=== PATIENT | male | born 1950 | race Caucasian/White ===

== ENCOUNTER 2019-12-29 17:01 | Emergency (ER) | payer MEDICARE, OTHER, SELFPAY ==
[2019-12-29 17:04] VITALS: BMI 27.9
--- NOTE | 2019-12-29 17:21 | W.ED.AMS ---
Documented by User: Tawana Gregorio MD 12/29/19 22:33 HPI - Altered Mental Status General: Chief Complaint: Altered Mental Status Stated Complaint: ADVANCED ALZHEIMER'S/ AMS Time Seen by Provider: 12/29/19 17:03 Source: patient and EMS Mode of arrival: EMS Limitations: altered mental status History of Present Illness: HPI narrative: 69-year-old male who has a history of dementia and advanced Alzheimer's. Family states he has been little more agitated than normal and is concerned that his meds are working. Patient's family states that he has been quite agitated at times at home and cannot stay alone and they cannot care for him. Patient currently is not agitated and able to answer most questions but does not know the time or the place which is consistent with his Alzheimer's. Denies any medical complaints at this time. complaint: altered mental status Associated symptoms: Deny depression Review of Systems Const: Denies: fever(s), chills, body aches or change in appetite Eyes: Denies: blurry vision or eye discomfort ENMT: Denies: throat pain or dental pain Card: Denies: chest pain Resp: Denies: dyspnea GI: Denies: abdominal pain, nausea, vomiting or diarrhea : Denies: dysuria Musc: Denies: neck pain or back pain Skin/Breast: Denies: rash Neuro: Reports: confusion; Denies: headache(s) Psych: Denies: depression Efrem/Lymph: Denies: easy bruising All/Imm: Denies: urticaria Physical Exam Const: COMMON NORMALS: no acute distress, healthy appearing and alert ORIENTATION/CONSCIOUSNESS: Yes oriented to person; not oriented to place and not oriented to time HENMT: COMMON NORMALS: normocephalic and atraumatic HEAD & SCALP: normocephalic and atraumatic Eye: COMMON NORMALS: Equal, round and reactive pupils present and EOMs intact bilaterally PUPIL: Yes Equal, round and reactive pupils present Neck/C-Spine: COMMON NORMALS: full ROM and supple Chest: COMMONS NORMALS: normal inspection of the chest and normal palpation of entire chest wall Resp: COMMON NORMALS: normal respiratory effort, No retractions, No use of accessory muscles and clear to auscultation bilaterally AUSCULTATION: clear to auscultation bilaterally Cardio: COMMON NORMALS: regular rate, regular rhythm and No murmurs present (Cardio) RATE: regular rate RHYTHM: regular rhythm GI: COMMON NORMALS: Normal to inspection, nondistended, normoactive bowel sounds present, Soft to palpation, non-tender and no masses PALPATION: Yes Soft to palpation Extremity: COMMON NORMALS: normal to inspection and full ROM Neuro: COMMON NORMALS: moves all extremities and no focal motor deficits SENSORIUM/ORIENTATION: Yes alert, Yes oriented to person, No oriented to place and No oriented to time Psych: COMMON NORMALS: mental status grossly normal, Normal thought process present and cooperative THOUGHT PROCESS: Normal thought process present Skin: COMMON NORMALS: no rashes or lesions noted and no wounds GENERAL SKIN EXAM: no rashes or lesions noted Course Vital Signs: Vital signs: Vital Signs Temperature 98.3 F 12/29/19 17:33 Pulse Rate 79 12/29/19 17:33 Respiratory Rate 18 12/29/19 17:33 Blood Pressure 122/93 12/29/19 17:33 Pulse Oximetry 96 12/29/19 17:33 MDM - Altered Mental Status MDM Narrative: Medical decision making narrative: Patient presents with increased agitation at home and daughter states that his meds seem not to be working for him. She states that he is not safe at home and is been wandering the streets and escaping her house and she is no longer able to take care of him and states she is scared he is getting get out and harm himself or someone else. We will seek geriatric psych placement. Patient's care turned over to Dr. Givens. Lab Data: Labs: Lab Results 12/29/19 12/29/19 12/29/19 Range/Units 17:25 17:25 17:25 WBC 7.6 (4.0-10.0) 10^3/ uL RBC 5.36 H (4.1-5.3) 10^6/u L Hgb 17.1 H (11.7-16.6) g/dL Hct 51.2 (42.0-52.0) % MCV 95.5 H (80-94) fL MCH 31.9 (28.0-34.0) pg MCHC 33.4 (30.0-36.0) g/dL RDW 13.2 (12.1-15.1) % Plt Count 222 (130-400) 10^3/c mm MPV 8.6 (7.4-10.4) fL Neut % (Auto) 65.1 % Lymph % (Auto) 22.9 % [place] % (Auto) 8.4 % Eos % (Auto) 3.0 % Baso % (Auto) 0.5 % Neut # (Auto) 4.96 (1.8-7.7) 10^3/u L Lymph # (Auto) 1.8 (0.8-4.8) 10^3/u L [place] # (Auto) 0.6 (0.2-0.9) 10^3/u L Eos # (Auto) 0.2 (0.0-0.8) 10^3/u L Baso # (Auto) 0.0 (0.0-0.1) 10^3/u L Nucleated RBC % (a uto) 0 % Nucleated RBCs # 0.0 /100WBC Sodium 139 (136-145) mmol/L Potassium 3.9 (3.5-5.1) mmol/L Chloride 104 (98-107) mmol/L Carbon Dioxide 25 (22-29) mmol/L Anion Gap 13.9 (5-19) BUN 11 (8-23) mg/dL Creatinine 0.9 (0.7-1.2) mg/dL GFR Calculation 83.9 L (90-130) mL/min Glucose 95 (65-115) mg/dL Calculated Osmolal ity 284 L (285-295) mOsm/k g Calcium 9.4 (8.5-10.5) mg/dL Total Bilirubin 0.3 (0.15-1.2) mg/dL AST 29 (0-40) U/L ALT 29 (0-41) U/L Alkaline Phosphata se 94 (40-130) IU/L Ammonia 30 (16-60) umol/L Total Protein 6.0 L (6.6-8.7) g/dL Albumin 3.9 (3.5-5.2) g/dL Globulin 2.1 (1.3-4.6) g/dL Vitamin B12 (232-1245) pg/mL TSH (0.27-4.20) uIU/ mL Urine Color (Yellow) Urine Appearance (CLEAR) Urine pH (5-7) Ur Specific Gravit y (1.005-1.030) Urine Protein (Negative) Urine Glucose (UA) (Normal) Urine Ketones (Negative) Urine Blood (Negative) Urine Nitrate (Negative) Urine Bilirubin (NEGATIVE) Urine Urobilinogen (Negative) mg/dL Ur Leukocyte Karen ase (Negative) Salicylates (3-10) mg/dL Urine Opiates Scre en (Negative) ng/mL Acetaminophen (10-30) ug/mL Ur Barbiturates Sc reen (Negative) ng/mL Ur Phencyclidine S crn (Negative) ng/mL Ur Amphetamines Sc reen (Negative) ng/mL U Benzodiazepines Scrn (Negative) ng/mL Urine Cocaine Scre en (Negative) ng/mL U Marijuana (THC) Screen (Negative) ng/mL Ethyl Alcohol (0-10) mg/dL 12/29/19 12/29/19 12/29/19 Range/Units 18:06 18:06 20:00 WBC (4.0-10.0) 10^3/ uL RBC (4.1-5.3) 10^6/u L Hgb (11.7-16.6) g/dL Hct (42.0-52.0) % MCV (80-94) fL MCH (28.0-34.0) pg MCHC (30.0-36.0) g/dL RDW (12.1-15.1) % Plt Count (130-400) 10^3/c mm MPV (7.4-10.4) fL Neut % (Auto) % Lymph % (Auto) % [place] % (Auto) % Eos % (Auto) % Baso % (Auto) % Neut # (Auto) (1.8-7.7) 10^3/u L Lymph # (Auto) (0.8-4.8) 10^3/u L [place] # (Auto) (0.2-0.9) 10^3/u L Eos # (Auto) (0.0-0.8) 10^3/u L Baso # (Auto) (0.0-0.1) 10^3/u L Nucleated RBC % (a uto) % Nucleated RBCs # /100WBC Sodium (136-145) mmol/L Potassium (3.5-5.1) mmol/L Chloride (98-107) mmol/L Carbon Dioxide (22-29) mmol/L Anion Gap (5-19) BUN (8-23) mg/dL Creatinine (0.7-1.2) mg/dL GFR Calculation (90-130) mL/min Glucose (65-115) mg/dL Calculated Osmolal ity (285-295) mOsm/k g Calcium (8.5-10.5) mg/dL Total Bilirubin (0.15-1.2) mg/dL AST (0-40) U/L ALT (0-41) U/L Alkaline Phosphata se (40-130) IU/L Ammonia (16-60) umol/L Total Protein (6.6-8.7) g/dL Albumin (3.5-5.2) g/dL Globulin (1.3-4.6) g/dL Vitamin B12 (232-1245) pg/mL TSH (0.27-4.20) uIU/ mL Urine Color Straw (Yellow) Urine Appearance Clear (CLEAR) Urine pH 6.5 (5-7) Ur Specific Gravit y 1.005 (1.005-1.030) Urine Protein Neg (Negative) Urine Glucose (UA) Norm (Normal) Urine Ketones Negative (Negative) Urine Blood Neg (Negative) Urine Nitrate Negative (Negative) Urine Bilirubin Neg (NEGATIVE) Urine Urobilinogen Norm (Negative) mg/dL Ur Leukocyte Karen ase Negative (Negative) Salicylates < 0.3 L (3-10) mg/dL Urine Opiates Scre en Negative (Negative) ng/mL Acetaminophen < 5.0 L (10-30) ug/mL Ur Barbiturates Sc reen Negative (Negative) ng/mL Ur Phencyclidine S crn Negative (Negative) ng/mL Ur Amphetamines Sc reen Negative (Negative) ng/mL U Benzodiazepines Scrn Negative (Negative) ng/mL Urine Cocaine Scre en Negative (Negative) ng/mL U Marijuana (THC) Screen Negative (Negative) ng/mL Ethyl Alcohol < 10 (0-10) mg/dL 12/29/19 Range/Units 20:00 WBC (4.0-10.0) 10^3/ uL RBC (4.1-5.3) 10^6/u L Hgb (11.7-16.6) g/dL Hct (42.0-52.0) % MCV (80-94) fL MCH (28.0-34.0) pg MCHC (30.0-36.0) g/dL RDW (12.1-15.1) % Plt Count (130-400) 10^3/c mm MPV (7.4-10.4) fL Neut % (Auto) % Lymph % (Auto) % [place] % (Auto) % Eos % (Auto) % Baso % (Auto) % Neut # (Auto) (1.8-7.7) 10^3/u L Lymph # (Auto) (0.8-4.8) 10^3/u L [place] # (Auto) (0.2-0.9) 10^3/u L Eos # (Auto) (0.0-0.8) 10^3/u L Baso # (Auto) (0.0-0.1) 10^3/u L Nucleated RBC % (a uto) % Nucleated RBCs # /100WBC Sodium (136-145) mmol/L Potassium (3.5-5.1) mmol/L Chloride (98-107) mmol/L Carbon Dioxide (22-29) mmol/L Anion Gap (5-19) BUN (8-23) mg/dL Creatinine (0.7-1.2) mg/dL GFR Calculation (90-130) mL/min Glucose (65-115) mg/dL Calculated Osmolal ity (285-295) mOsm/k g Calcium (8.5-10.5) mg/dL Total Bilirubin (0.15-1.2) mg/dL AST (0-40) U/L ALT (0-41) U/L Alkaline Phosphata se (40-130) IU/L Ammonia (16-60) umol/L Total Protein (6.6-8.7) g/dL Albumin (3.5-5.2) g/dL Globulin (1.3-4.6) g/dL Vitamin B12 1057 (232-1245) pg/mL TSH 2.00 (0.27-4.20) uIU/ mL Urine Color (Yellow) Urine Appearance (CLEAR) Urine pH (5-7) Ur Specific Gravit y (1.005-1.030) Urine Protein (Negative) Urine Glucose (UA) (Normal) Urine Ketones (Negative) Urine Blood (Negative) Urine Nitrate (Negative) Urine Bilirubin (NEGATIVE) Urine Urobilinogen (Negative) mg/dL Ur Leukocyte Karen ase (Negative) Salicylates (3-10) mg/dL Urine Opiates Scre en (Negative) ng/mL Acetaminophen (10-30) ug/mL Ur Barbiturates Sc reen (Negative) ng/mL Ur Phencyclidine S crn (Negative) ng/mL Ur Amphetamines Sc reen (Negative) ng/mL U Benzodiazepines Scrn (Negative) ng/mL Urine Cocaine Scre en (Negative) ng/mL U Marijuana (THC) Screen (Negative) ng/mL Ethyl Alcohol (0-10) mg/dL Imaging Data^: CT Head: Radiologist's impression: [address] [address] [address] Scan Report Signed Patient: Jen Vinson Unit #: [id number] : 1950 Age/Sex: 69 / M ADM Date: 12/29/19 Loc: ER Room/Bed: Attending Dr: Ordering Provider/Ordering MD: Tawana Gregorio MD Date of Service: 12/29/19 Procedure(s): CT head wo con* [id number] Accession Number(s): [id number] Report Number: [id number] PROCEDURE INFORMATION: Exam: CT Head Without Contrast Exam date and time: 12/29/2019 6:17 PM Age: 69 years old Clinical indication: Altered mental status/memory loss; Confusion or disorientation; Patient HX: Advanced alzheimers w increased confusion; Additional info: AMS TECHNIQUE: Imaging protocol: Computed tomography of the head without contrast. Axial, coronal and sagittal reformatted images were created and reviewed. Radiation optimization: All CT scans at this facility use at least one of these dose optimization techniques: automated exposure control; mA and/or kV adjustment per patient size (includes targeted exams where dose is matched to clinical indication); or iterative reconstruction. COMPARISON: CT head wo con* [id number] 12/15/2016 1:35 PM RADIATION DOSE METRICS: Total DLP (mGy-cm): 1610.09 FINDINGS: Brain: Patchy areas of hypoattenuation in the periventricular and subcortical white matter, consistent with chronic small vessel ischemic disease. No CT evidence of acute intracranial hemorrhage or acute territorial infarction. No significant mass effect or midline shift. Basal cisterns patent. Ventricles: Axial, coronal and sagittal reformatted images were created and reviewed. Bones/joints: No acute osseous abnormality. Sinuses: Mild mucosal thickening of the ethmoid air cells and paranasal sinuses. Mastoid air cells: Partial opacification and sclerosis of the left mastoid air cells. Vasculature: Calcific atherosclerotic disease in the cavernous internal carotid arteries, as well as the vertebro-basilar system. Soft tissues: Grossly unremarkable. CT/CT head wo con* [id number] IMPRESSION: 1. No CT evidence of acute intracranial pathology. 2. Additional findings, as above. EKG Data^: EKG 1: Attestation: I personally reviewed and interpreted this EKG as follows: EKG interpretation date: 12/29/19 EKG interpretation time: 17:53 Interpretation: nsr hr [address] or t wave abnormalities qrs 98 qtc 399 Discharge Plan Discharge Clinical Impression: Agitation Altered mental status Qualifiers: Altered mental status type: unspecified Qualified Code(s): R41.82 - Altered mental status, unspecified Condition: Stable Prescriptions: No Action quetiapine 25 mg tablet 25 mg PO BEDTIME RF: 0 donepezil 10 mg tablet 10 mg PO BEDTIME RF: 0 terbinafine HCl 250 mg tablet 250 mg PO DAILY RF: 0 epinephrine 0.3 mg/0.3 mL auto-injector See Rx Instructions .ROUTE .COMPLEX RF: 0 escitalopram oxalate 20 mg tablet 20 mg PO DAILY RF: 0 memantine 10 mg tablet 10 mg PO BID RF: 0 Referrals: Aquilino Hernandez MD [Primary Care Provider] - Coding Level of Care Code ED Diet Counselor for Chg Fwd Exam Comprehensive Documented by User: Brando Givens DO 12/30/19 04:13 HPI - Altered Mental Status General: Chief Complaint: Altered Mental Status Stated Complaint: ADVANCED ALZHEIMER'S/ AMS Time Seen by Provider: 12/29/19 17:03 Course Vital Signs: Vital signs: Vital Signs Temperature 98.3 F 12/29/19 17:33 Pulse Rate 79 12/29/19 17:33 Respiratory Rate 18 12/29/19 17:33 Blood Pressure 122/93 12/29/19 17:33 Pulse Oximetry 96 12/29/19 17:33 MDM - Altered Mental Status MDM Narrative: Medical decision making narrative: 69-year-old male with dementia checked out to me by Dr. Gregorio at shift change. He remains medically stable. He is resting comfortably in his room. Staff has been in contact with geriatric psychiatry facility and [facility]. They have agreed to accept in transfer for continued evaluation and management. Lab Data: Labs: Lab Results 12/29/19 12/29/19 12/29/19 Range/Units 17:25 17:25 17:25 WBC 7.6 (4.0-10.0) 10^3/ uL RBC 5.36 H (4.1-5.3) 10^6/u L Hgb 17.1 H (11.7-16.6) g/dL Hct 51.2 (42.0-52.0) % MCV 95.5 H (80-94) fL MCH 31.9 (28.0-34.0) pg MCHC 33.4 (30.0-36.0) g/dL RDW 13.2 (12.1-15.1) % Plt Count 222 (130-400) 10^3/c mm MPV 8.6 (7.4-10.4) fL Neut % (Auto) 65.1 % Lymph % (Auto) 22.9 % [place] % (Auto) 8.4 % Eos % (Auto) 3.0 % Baso % (Auto) 0.5 % Neut # (Auto) 4.96 (1.8-7.7) 10^3/u L Lymph # (Auto) 1.8 (0.8-4.8) 10^3/u L [place] # (Auto) 0.6 (0.2-0.9) 10^3/u L Eos # (Auto) 0.2 (0.0-0.8) 10^3/u L Baso # (Auto) 0.0 (0.0-0.1) 10^3/u L Nucleated RBC % (a uto) 0 % Nucleated RBCs # 0.0 /100WBC Sodium 139 (136-145) mmol/L Potassium 3.9 (3.5-5.1) mmol/L Chloride 104 (98-107) mmol/L Carbon Dioxide 25 (22-29) mmol/L Anion Gap 13.9 (5-19) BUN 11 (8-23) mg/dL Creatinine 0.9 (0.7-1.2) mg/dL GFR Calculation 83.9 L (90-130) mL/min Glucose 95 (65-115) mg/dL Calculated Osmolal ity 284 L (285-295) mOsm/k g Calcium 9.4 (8.5-10.5) mg/dL Total Bilirubin 0.3 (0.15-1.2) mg/dL AST 29 (0-40) U/L ALT 29 (0-41) U/L Alkaline Phosphata se 94 (40-130) IU/L Ammonia 30 (16-60) umol/L Total Protein 6.0 L (6.6-8.7) g/dL Albumin 3.9 (3.5-5.2) g/dL Globulin 2.1 (1.3-4.6) g/dL Vitamin B12 (232-1245) pg/mL TSH (0.27-4.20) uIU/ mL Urine Color (Yellow) Urine Appearance (CLEAR) Urine pH (5-7) Ur Specific Gravit y (1.005-1.030) Urine Protein (Negative) Urine Glucose (UA) (Normal) Urine Ketones (Negative) Urine Blood (Negative) Urine Nitrate (Negative) Urine Bilirubin (NEGATIVE) Urine Urobilinogen (Negative) mg/dL Ur Leukocyte Karen ase (Negative) Salicylates (3-10) mg/dL Urine Opiates Scre en (Negative) ng/mL Acetaminophen (10-30) ug/mL Ur Barbiturates Sc reen (Negative) ng/mL Ur Phencyclidine S crn (Negative) ng/mL Ur Amphetamines Sc reen (Negative) ng/mL U Benzodiazepines Scrn (Negative) ng/mL Urine Cocaine Scre en (Negative) ng/mL U Marijuana (THC) Screen (Negative) ng/mL Ethyl Alcohol (0-10) mg/dL 12/29/19 12/29/19 12/29/19 Range/Units 18:06 18:06 20:00 WBC (4.0-10.0) 10^3/ uL RBC (4.1-5.3) 10^6/u L Hgb (11.7-16.6) g/dL Hct (42.0-52.0) % MCV (80-94) fL MCH (28.0-34.0) pg MCHC (30.0-36.0) g/dL RDW (12.1-15.1) % Plt Count (130-400) 10^3/c mm MPV (7.4-10.4) fL Neut % (Auto) % Lymph % (Auto) % [place] % (Auto) % Eos % (Auto) % Baso % (Auto) % Neut # (Auto) (1.8-7.7) 10^3/u L Lymph # (Auto) (0.8-4.8) 10^3/u L [place] # (Auto) (0.2-0.9) 10^3/u L Eos # (Auto) (0.0-0.8) 10^3/u L Baso # (Auto) (0.0-0.1) 10^3/u L Nucleated RBC % (a uto) % Nucleated RBCs # /100WBC Sodium (136-145) mmol/L Potassium (3.5-5.1) mmol/L Chloride (98-107) mmol/L Carbon Dioxide (22-29) mmol/L Anion Gap (5-19) BUN (8-23) mg/dL Creatinine (0.7-1.2) mg/dL GFR Calculation (90-130) mL/min Glucose (65-115) mg/dL Calculated Osmolal ity (285-295) mOsm/k g Calcium (8.5-10.5) mg/dL Total Bilirubin (0.15-1.2) mg/dL AST (0-40) U/L ALT (0-41) U/L Alkaline Phosphata se (40-130) IU/L Ammonia (16-60) umol/L Total Protein (6.6-8.7) g/dL Albumin (3.5-5.2) g/dL Globulin (1.3-4.6) g/dL Vitamin B12 (232-1245) pg/mL TSH (0.27-4.20) uIU/ mL Urine Color Straw (Yellow) Urine Appearance Clear (CLEAR) Urine pH 6.5 (5-7) Ur Specific Gravit y 1.005 (1.005-1.030) Urine Protein Neg (Negative) Urine Glucose (UA) Norm (Normal) Urine Ketones Negative (Negative) Urine Blood Neg (Negative) Urine Nitrate Negative (Negative) Urine Bilirubin Neg (NEGATIVE) Urine Urobilinogen Norm (Negative) mg/dL Ur Leukocyte Karen ase Negative (Negative) Salicylates < 0.3 L (3-10) mg/dL Urine Opiates Scre en Negative (Negative) ng/mL Acetaminophen < 5.0 L (10-30) ug/mL Ur Barbiturates Sc reen Negative (Negative) ng/mL Ur Phencyclidine S crn Negative (Negative) ng/mL Ur Amphetamines Sc reen Negative (Negative) ng/mL U Benzodiazepines Scrn Negative (Negative) ng/mL Urine Cocaine Scre en Negative (Negative) ng/mL U Marijuana (THC) Screen Negative (Negative) ng/mL Ethyl Alcohol < 10 (0-10) mg/dL 12/29/19 Range/Units 20:00 WBC (4.0-10.0) 10^3/ uL RBC (4.1-5.3) 10^6/u L Hgb (11.7-16.6) g/dL Hct (42.0-52.0) % MCV (80-94) fL MCH (28.0-34.0) pg MCHC (30.0-36.0) g/dL RDW (12.1-15.1) % Plt Count (130-400) 10^3/c mm MPV (7.4-10.4) fL Neut % (Auto) % Lymph % (Auto) % [place] % (Auto) % Eos % (Auto) % Baso % (Auto) % Neut # (Auto) (1.8-7.7) 10^3/u L Lymph # (Auto) (0.8-4.8) 10^3/u L [place] # (Auto) (0.2-0.9) 10^3/u L Eos # (Auto) (0.0-0.8) 10^3/u L Baso # (Auto) (0.0-0.1) 10^3/u L Nucleated RBC % (a uto) % Nucleated RBCs # /100WBC Sodium (136-145) mmol/L Potassium (3.5-5.1) mmol/L Chloride (98-107) mmol/L Carbon Dioxide (22-29) mmol/L Anion Gap (5-19) BUN (8-23) mg/dL Creatinine (0.7-1.2) mg/dL GFR Calculation (90-130) mL/min Glucose (65-115) mg/dL Calculated Osmolal ity (285-295) mOsm/k g Calcium (8.5-10.5) mg/dL Total Bilirubin (0.15-1.2) mg/dL AST (0-40) U/L ALT (0-41) U/L Alkaline Phosphata se (40-130) IU/L Ammonia (16-60) umol/L Total Protein (6.6-8.7) g/dL Albumin (3.5-5.2) g/dL Globulin (1.3-4.6) g/dL Vitamin B12 1057 (232-1245) pg/mL TSH 2.00 (0.27-4.20) uIU/ mL Urine Color (Yellow) Urine Appearance (CLEAR) Urine pH (5-7) Ur Specific Gravit y (1.005-1.030) Urine Protein (Negative) Urine Glucose (UA) (Normal) Urine Ketones (Negative) Urine Blood (Negative) Urine Nitrate (Negative) Urine Bilirubin (NEGATIVE) Urine Urobilinogen (Negative) mg/dL Ur Leukocyte Karen ase (Negative) Salicylates (3-10) mg/dL Urine Opiates Scre en (Negative) ng/mL Acetaminophen (10-30) ug/mL Ur Barbiturates Sc reen (Negative) ng/mL Ur Phencyclidine S crn (Negative) ng/mL Ur Amphetamines Sc reen (Negative) ng/mL U Benzodiazepines Scrn (Negative) ng/mL Urine Cocaine Scre en (Negative) ng/mL U Marijuana (THC) Screen (Negative) ng/mL Ethyl Alcohol (0-10) mg/dL Discharge Plan Discharge Clinical Impression: Agitation Altered mental status Qualifiers: Altered mental status type: unspecified Qualified Code(s): R41.82 - Altered mental status, unspecified Condition: Stable Prescriptions: No Action quetiapine 25 mg tablet 25 mg PO BEDTIME RF: 0 donepezil 10 mg tablet 10 mg PO BEDTIME RF: 0 terbinafine HCl 250 mg tablet 250 mg PO DAILY RF: 0 epinephrine 0.3 mg/0.3 mL auto-injector See Rx Instructions .ROUTE .COMPLEX RF: 0 escitalopram oxalate 20 mg tablet 20 mg PO DAILY RF: 0 memantine 10 mg tablet 10 mg PO BID RF: 0 Referrals: Aquilino Hernandez MD [Primary Care Provider] - Coding Level of Care Code ED Diet Counselor for Chayog Fwd Exam Comprehensive
--- NOTE | 2019-12-29 17:29 | CTR_ITS ---
PROCEDURE INFORMATION: Exam: CT Head Without Contrast Exam date and time: 12/29/2019 6:17 PM Age: 69 years old Clinical indication: Altered mental status/memory loss; Confusion or disorientation; Patient HX: Advanced alzheimers w increased confusion; Additional info: AMS TECHNIQUE: Imaging protocol: Computed tomography of the head without contrast. Axial, coronal and sagittal reformatted images were created and reviewed. Radiation optimization: All CT scans at this facility use at least one of these dose optimization techniques: automated exposure control; mA and/or kV adjustment per patient size (includes targeted exams where dose is matched to clinical indication); or iterative reconstruction. COMPARISON: CT head wo con* [id number] 12/15/2016 1:35 PM RADIATION DOSE METRICS: Total DLP (mGy-cm): 1610.09 FINDINGS: Brain: Patchy areas of hypoattenuation in the periventricular and subcortical white matter, consistent with chronic small vessel ischemic disease. No CT evidence of acute intracranial hemorrhage or acute territorial infarction. No significant mass effect or midline shift. Basal cisterns patent. Ventricles: Axial, coronal and sagittal reformatted images were created and reviewed. Bones/joints: No acute osseous abnormality. Sinuses: Mild mucosal thickening of the ethmoid air cells and paranasal sinuses. Mastoid air cells: Partial opacification and sclerosis of the left mastoid air cells. Vasculature: Calcific atherosclerotic disease in the cavernous internal carotid arteries, as well as the vertebro-basilar system. Soft tissues: Grossly unremarkable. CT/CT head wo con* [id number] IMPRESSION: 1. No CT evidence of acute intracranial pathology. 2. Additional findings, as above. Radiation Dose CTDIVOL = (mGy): DLP = 1610.09 (mGy-cm)
--- NOTE | 2019-12-29 17:29 | ECG_ITS ---
[facility] Test Date: 2019-12-29 Pat Name: Jen Vinson Department: Room: Gender: Male Court Recorder: : 1950 Requested By: Tawana Gregorio Order Number: [id number] Lobito MD: Vasile Brian M.D. Measurements Intervals [place] Rate: 80 P: 41 VA: 174 QRS: 23 QRSD: 98 T: 18 QT: 363 QTc: 420 Interpretive Statements SINUS RHYTHM LOW QRS VOLTAGE IN PRECORDIAL LEADS [QRS DEFLECTION < 1.0 mV IN CHEST LEADS] Compared to ECG 12/16/2016 06:03:27 Low QRS voltage now present Sinus bradycardia no longer present Electronically Signed On 12-29-2019 19:05:10 CDT by Vasile Brian M.D. [email or web address] community [email or web address] marion [facility] [id number] f
[2019-12-29 17:33] VITALS: BP 122/93; PULSE 79; RESP 18; TEMP 36.8; O2SAT 96
[2019-12-29 17:34] LABS: Basophils % 0.5 %; Eosinophils # 0.2 10^3/uL (0.0-0.8); Hematocrit 51.2 % (42.0-52.0); Hemoglobin 17.1 g/dL (11.7-16.6); Lymphocytes # 1.8 10^3/uL (0.8-4.8); Lymphocytes % 22.9 %; Mean Corpuscular HGB Conc 33.4 g/dL (30.0-36.0); Mean Corpuscular Hemoglobin 31.9 pg (28.0-34.0); Mean Corpuscular Volume 95.5 fL (80-94); Mean Platelet Volume 8.6 fL (7.4-10.4); Monocytes # 0.6 10^3/uL (0.2-0.9); Monocytes % 8.4 %; Neutrophils # 4.96 10^3/uL (1.8-7.7); Neutrophils % 65.1 %; Nucleated Red Blood Cells % 0 %; Platelet Count 222 10^3/cmm (130-400); Red Blood Count 5.36 10^6/uL (4.1-5.3); Red Cell Distribution Width 13.2 % (12.1-15.1); White Blood Count 7.6 10^3/uL (4.0-10.0)
[2019-12-29 18:10] LABS: Add Urine Microscopic? NO
[2019-12-29 18:14] LABS: Ammonia 30 umol/L (16-60)
[2019-12-29 18:15] LABS: Alanine Aminotransferase 29 U/L (0-41); Albumin Level 3.9 g/dL (3.5-5.2); Alkaline Phosphatase 94 IU/L (40-130); Aspartate Amino Transferase 29 U/L (0-40); Carbon Dioxide 25 mmol/L (22-29); Chloride 104 mmol/L (98-107); Globulin 2.1 g/dL (1.3-4.6); Glucose 95 mg/dL (65-115); Sodium 139 mmol/L (136-145); Total Bilirubin 0.3 mg/dL (0.15-1.2)
[2019-12-29 18:17] LABS: Bilirubin Urine Neg (NEGATIVE); Blood Urine Neg (Negative); Glucose Urine UA Norm (Normal); Ketones Urine Negative (Negative); Leukocyte Esterase Urine Negative (Negative); Nitrate Urine Negative (Negative); Protein Urine Neg (Negative); Specific Gravity, Urine 1.005 (1.005-1.030); Urine Appearance Clear (CLEAR); Urine Color Straw (Yellow); Urobilinogen Urine Norm (Negative); pH Urine 6.5 (5-7)
[2019-12-29 18:41] LABS: Blood Urea Nitrogen 11 mg/dL (8-23); Calcium 9.4 mg/dL (8.5-10.5); Osmolality Calculated 284 mOsm/kg (285-295)
[2019-12-29 18:45] LABS: Anion Gap 13.9 (5-19); Potassium 3.9 mmol/L (3.5-5.1)
[2019-12-29 19:02] LABS: Glomerular Filtration Rate 83.9 mL/min (90-130)
--- NOTE | 2019-12-29 19:35 | PC.NURSE ---
Informed pt's daughter Terri @ [phone] who states she is the pt's guardian that pt is ready for discharge, no acute findings noted. 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 She was asked if she has filed out an affidavit,she stated no. Pt guardian informed that one will have to be completed and care can move forward depending on the findings. Pt guardian informed that as his guardian she can find facilities that can meet his needs if she is unable to care for himself. Pt's guardian states she will come to the ED to complete an affivadit to place ot in 96 hour hold. notifian
[2019-12-29 19:58] LABS: Amphetamines Screen Urine Negative (Negative); Barbiturates Screen Urine Negative (Negative); Benzodiazepines Screen Urine Negative (Negative); Cocaine Screen Urine Negative (Negative); Opiate Screen Urine Negative (Negative); PCP Screen Urine Negative (Negative); THC Screen Urine Negative (Negative)
--- NOTE | 2019-12-29 20:26 | PC.NURSE ---
IV insertion of 20g is documented on the wrong patient
[2019-12-29] MEDS: LORazepam 1 mg Tablet PO (21:01)
[2019-12-29 21:04] LABS: Acetaminophen < 5.0 ug/mL (10-30); Alcohol Level < 10 mg/dL (0-10); Salicylate < 0.3 mg/dL (3-10)
--- NOTE | 2019-12-30 00:18 | PC.NURSE ---
[place], [place] has bed for pt. Chart faxed attn Flo
[2019-12-30 00:20] LABS: Vitamin B12 1057 pg/mL (232-1245)
--- NOTE | 2019-12-30 01:10 | PC.NURSE ---
during pt rounding, pt requesting sandwich and drink. food and drink provided
--- NOTE | 2019-12-30 02:23 | PC.NURSE ---
S/W Kathleen @ [facility], pt may not meet the initial requirements for inpatient stay. However, after report given, Kathleen states she will have his case given further review
--- NOTE | 2019-12-30 03:49 | PC.NURSE ---
Pt assisted to bathroom
--- NOTE | 2019-12-30 04:29 | PC.NURSE ---
vm left for DPOA regarding pt admit status @ [facility]
[2019-12-30 04:52] VITALS: BP 126/76; PULSE 54; RESP 18; O2SAT 96
== END 2019-12-30 04:54 ==
PROVIDERS: Emergency Medicine; Emergency Provider Emergency Medicine; PCP Family Medicine
DX: R45.1 Restlessness and agitation (principal); R41.82 Altered mental status, unspecified; G30.9 Alzheimer's disease, unspecified; F02.80 Dementia in other diseases classified elsewhere, unspecified severity, without behavioral disturbance, psychotic disturbance, mood disturbance, and anxiety
CPT/HCPCS: 12345; 36415; 70450; 80053; 80306; 80307; 81003; 82140; 82607; 84443; 85025; 93005; 99284; 99285

== ENCOUNTER 2020-02-27 09:45 | Emergency (ER) | payer MEDICARE, OTHER, SELFPAY ==
[2020-02-27 09:48] VITALS: BP 119/77; PULSE 100; RESP 18; TEMP 36.9; O2SAT 97
--- NOTE | 2020-02-27 09:59 | XR_ITS ---
WS: [id number] CHEST XRAY TECHNIQUE: Portable chest. CLINICAL INFORMATION: syncope COMPARISON: FINDINGS: Heart: Cardiomegaly. Lungs: Mild chronic emphysematous changes. No acute pulmonary infiltrates. Bones: Normal visualized bony structures. XR/XR chest 1V portable [id number] IMPRESSION: No acute chest findings
--- NOTE | 2020-02-27 10:03 | W.ED.GENADLT ---
HPI - General Adult General: Chief complaint: Altered Mental Status Stated complaint: INCREASED CONFUSION AND TEMP Time Seen by Provider: 02/27/20 09:50 History of Present Illness: HPI narrative: 69-year-old male patient presents to the emergency department by EMS, he was sent to the emergency department due to increased confusion and fever. He has active Alzheimer's dementia, cared for by long-term care facility. HPI completed with assistance from nursing staff. Alzheimer's disease is advanced. He is currently treated with Bactrim DS for abscess to the right neck. Staff reports fever this morning and looked pale. Onset (ago): day(s) (1) Location: neck (Right lateral) Associated symptoms: Reports headache(s); Deny chest pain, dyspnea, nausea, palpitations or vomiting Review of Systems General: Reports: 10 or more systems reviewed and unremarkable except in HPI and below Const: Reports: fever(s) and chills Eyes: Denies: blurry vision or eye redness ENMT: Denies: throat pain, dental pain or disequilibrium Card: Denies: chest pain, palpitations or irregular heart rhythm Resp: Denies: dyspnea, productive cough, non-productive cough or wheezing GI: Denies: abdominal pain, nausea or vomiting : Denies: dysuria Musc: Denies: back pain Skin/Breast: Reports: erythema (Right lateral neck) and skin tenderness (Right lateral neck) Neuro: Reports: headache(s), weakness in extremities, behavioral changes (increased confusion) and other (Alzheimer's dementia, advanced) Psych: Reports: sleeping more and difficulty concentrating Efrem/Lymph: Denies: easy bruising Physical Exam Const: COMMON NORMALS: no acute distress, healthy appearing, alert and well nourished EXAM LIMITATIONS: altered mental status (Advanced Alzheimer's dementia, chronic) GENERAL APPEARANCE: comfortable and well kempt ORIENTATION/CONSCIOUSNESS: Yes awake and Yes Other orientation findings (Limited secondary to Alzheimer's dementia) HENMT: COMMON NORMALS: normocephalic, external ears normal and Normal external nose present HEAD & SCALP: normocephalic FACE & SINUS: normal facial exam NOSE: Normal external nose present EXTERNAL EAR: Yes external ears normal MOUTH: moist mucous membranes abnormal (dry -food remnant in mouth) THROAT: posterior oropharynx normal Eye: COMMON NORMALS: Equal, round and reactive pupils present GENERAL EYE: appearance normal, both eyes and all related structures EYELID: eyelids normal PUPIL: Yes Equal, round and reactive pupils present EOM: Yes EOM abnormal Neck/C-Spine: COMMON NORMALS: full ROM and no lymphadenopathy GENERAL: Yes normal visual inspection and Yes trachea midline CERVICAL SPINE: Yes cervical ROM normal Lymph: LYMPHATIC: no lymphadenopathy noted Chest: COMMONS NORMALS: normal inspection of the chest Resp: COMMON NORMALS: normal respiratory effort and clear to auscultation bilaterally AUSCULTATION: clear to auscultation bilaterally Cardio: COMMON NORMALS: regular rhythm, S1 normal heart sound present and S2 normal heart sound present RHYTHM: regular rhythm HEART SOUNDS: S1 normal heart sound present and S2 normal heart sound present GI: COMMON NORMALS: Normal to inspection, nondistended, normoactive bowel sounds present, Soft to palpation and non-tender INSPECTION: Yes normal to inspection PALPATION: Yes Soft to palpation PERCUSSION: normal to percussion : COMMON NORMALS: Yes no CVA tenderness BLADDER/KIDNEY EXAM: Yes no CVA tenderness Back/Pelvis: COMMON NORMALS: no CVA tenderness and thoracic and lumbar spine normal to inspection Extremity: COMMON NORMALS: normal to inspection and capillary refill normal Neuro: MYA COMA SCALE: GCS not evaluated (Due to advanced Alzheimer state) COMMON NORMALS: moves all extremities (Spontaneous movement) SENSORIUM/ORIENTATION: Yes alert GAIT: Yes Unable to assess gait MOTOR EXAM: Tremors during motor activity present resting tremor bialteral upper extremity and right upper extremity Psych: COMMON NORMALS: speech normal APPEARANCE: Yes well kempt ATTITUDE: Yes calm ACTIVITY/MOTOR BEHAVIOR: Yes fidgeting SPEECH: Yes normal speech and Yes minimal THOUGHT PROCESS: disorganized and confused ATTENTION/CONCENTRATION: Yes attention grossly impaired and Yes concentration grossly impaired MEMORY/COGNITION: Yes memory grossly impaired and Yes cognition grossly impaired Skin: COMMON NORMALS: no rashes or lesions noted and turgor normal GENERAL SKIN EXAM: no rashes or lesions noted and turgor normal LESIONS: lesion noted (2.5 cm x 2.5 cm scab formation, annular without induration suggesting abscess ) and other (right lateral neck, no drainage, erythema or tenderness) RASHES: no rashes TRAUMA: no lacerations or abrasions Course ED course: 69-year-old male presents to the emergency department from [facility]. Tested for COVID mid January, negative, has continued in quarantine without visitors. Per nursing staff, wound to the right neck, no surrounding much improved, currently on Bactrim, will continue. Chest x-ray negative for acute disease, urine negative for urinary tract infection, white blood count normal, lactic acid normal, patient sitting on the side of the bed drinking, interacting with staff, patient had combative episode during the emergency department during [place] catheter insertion but quickly calmed down when removed. Alzheimer's and dementia, advanced, remains confused but at baseline. He looks good, vital signs are normal, slight dehydration noted with IV fluid administration here in the ED. Vital Signs: Vital signs: Vital Signs Temperature 97.6 F 02/27/20 12:43 Pulse Rate 97 02/27/20 12:43 Respiratory Rate 16 02/27/20 12:43 Blood Pressure 110/89 02/27/20 12:43 Pulse Oximetry 96 02/27/20 12:43 MDM - General Adult Lab Data: Labs: Lab Results 02/27/20 02/27/20 02/27/20 Range/Units 10:00 10:00 10:00 WBC 5.7 (4.0-10.0) 10^3/ uL RBC 5.56 H (4.1-5.3) 10^6/u L Hgb 17.8 H (11.7-16.6) g/dL Hct 52.8 H (42.0-52.0) % MCV 95.0 H (80-94) fL MCH 32.0 (28.0-34.0) pg MCHC 33.7 (30.0-36.0) g/dL RDW 13.2 (12.1-15.1) % Plt Count 187 (130-400) 10^3/c mm MPV 8.2 (7.4-10.4) fL Neut % (Auto) 76.9 % Lymph % (Auto) 11.0 % [place] % (Auto) 11.2 % Eos % (Auto) 0.2 % Baso % (Auto) 0.5 % Neut # (Auto) 4.40 (1.8-7.7) 10^3/u L Lymph # (Auto) 0.6 L (0.8-4.8) 10^3/u L [place] # (Auto) 0.6 (0.2-0.9) 10^3/u L Eos # (Auto) 0.0 (0.0-0.8) 10^3/u L Baso # (Auto) 0.0 (0.0-0.1) 10^3/u L Nucleated RBC % (a uto) 0 % Nucleated RBCs # 0.0 /100WBC Sodium 134 L (136-145) mmol/L Potassium 4.3 (3.5-5.1) mmol/L Chloride 100 (98-107) mmol/L Carbon Dioxide 23 (22-29) mmol/L Anion Gap 15.3 (5-19) BUN 17 (8-23) mg/dL Creatinine 0.9 (0.7-1.2) mg/dL GFR Calculation 83.9 L (90-130) mL/min Glucose 134 H (65-115) mg/dL Calculated Osmolal ity 276 L (285-295) mOsm/k g Lactate 1.4 (0.5-2.2) mmol/L Calcium 9.0 (8.5-10.5) mg/dL Total Bilirubin 0.4 (0.15-1.2) mg/dL AST 33 (0-40) U/L ALT 42 H (0-41) U/L Alkaline Phosphata se 141 H (40-130) IU/L Total Protein 7.3 (6.6-8.7) g/dL Albumin 4.2 (3.5-5.2) g/dL Globulin 3.1 (1.3-4.6) g/dL Urine Color (Yellow) Urine Appearance (CLEAR) Urine pH (5-7) Ur Specific Gravit y (1.005-1.030) Urine Protein (Negative) Urine Glucose (UA) (Normal) Urine Ketones (Negative) Urine Blood (Negative) Urine Nitrate (Negative) Urine Bilirubin (NEGATIVE) Urine Urobilinogen (Negative) mg/dL Ur Leukocyte Karen ase (Negative) 02/27/20 Range/Units 11:22 WBC (4.0-10.0) 10^3/ uL RBC (4.1-5.3) 10^6/u L Hgb (11.7-16.6) g/dL Hct (42.0-52.0) % MCV (80-94) fL MCH (28.0-34.0) pg MCHC (30.0-36.0) g/dL RDW (12.1-15.1) % Plt Count (130-400) 10^3/c mm MPV (7.4-10.4) fL Neut % (Auto) % Lymph % (Auto) % [place] % (Auto) % Eos % (Auto) % Baso % (Auto) % Neut # (Auto) (1.8-7.7) 10^3/u L Lymph # (Auto) (0.8-4.8) 10^3/u L [place] # (Auto) (0.2-0.9) 10^3/u L Eos # (Auto) (0.0-0.8) 10^3/u L Baso # (Auto) (0.0-0.1) 10^3/u L Nucleated RBC % (a uto) % Nucleated RBCs # /100WBC Sodium (136-145) mmol/L Potassium (3.5-5.1) mmol/L Chloride (98-107) mmol/L Carbon Dioxide (22-29) mmol/L Anion Gap (5-19) BUN (8-23) mg/dL Creatinine (0.7-1.2) mg/dL GFR Calculation (90-130) mL/min Glucose (65-115) mg/dL Calculated Osmolal ity (285-295) mOsm/k g Lactate (0.5-2.2) mmol/L Calcium (8.5-10.5) mg/dL Total Bilirubin (0.15-1.2) mg/dL AST (0-40) U/L ALT (0-41) U/L Alkaline Phosphata se (40-130) IU/L Total Protein (6.6-8.7) g/dL Albumin (3.5-5.2) g/dL Globulin (1.3-4.6) g/dL Urine Color Yellow (Yellow) Urine Appearance Clear (CLEAR) Urine pH 6 (5-7) Ur Specific Gravit y 1.020 (1.005-1.030) Urine Protein Neg (Negative) Urine Glucose (UA) Norm (Normal) Urine Ketones Negative (Negative) Urine Blood Neg (Negative) Urine Nitrate Negative (Negative) Urine Bilirubin Neg (NEGATIVE) Urine Urobilinogen 4 H (Negative) mg/dL Ur Leukocyte Karen ase Negative (Negative) Discharge Plan Discharge Patient Disposition: Xfer [facility] Clinical Impression: Healing wound, Dehydration Alzheimer's disease Qualifiers: Alzheimer's disease onset: unspecified onset Dementia behavioral disturbance: with behavioral disturbance Qualified Code(s): G30.9 - Alzheimer's disease, unspecified Condition: Stable Discharge Orders: Discharge Order (Routine); Ordered 02/27/20 Ordered By: Lashon Diallo Referrals: Aquilino Hernandez MD [Primary Care Provider] - Discharge Diet: Usual diet Discharge Activity: Resume usual activity Patient Instructions: Dehydration (ED), Alzheimer Disease (GEN), Acute Wound Care (ED) Activity Restrictions/Additional Instructions: Continue Bactrim until all gone Follow-up with primary care in 5 days Patient has not exhibited fever here in the emergency department Patient has received 1 L of IV fluids during his stay Chest x-ray negative for pneumonia or acute disease White blood count was normal Lactic acid was normal Urine was normal without UTI Wound approved according to nursing staff at the facility to the right neck Continue current medications and treatment Continue to monitor for fever Push fluids. Discharge Date/Time: 02/27/20 12:47 Coding Level of Care Code ED [employer] for [employer] Fwd Exam Comprehensive
[2020-02-27 10:08] LABS: Basophils % 0.5 %; Eosinophils % 0.2 %; Hematocrit 52.8 % (42.0-52.0); Hemoglobin 17.8 g/dL (11.7-16.6); Lymphocytes # 0.6 10^3/uL (0.8-4.8); Mean Corpuscular HGB Conc 33.7 g/dL (30.0-36.0); Mean Platelet Volume 8.2 fL (7.4-10.4); Monocytes # 0.6 10^3/uL (0.2-0.9); Monocytes % 11.2 %; Neutrophils % 76.9 %; Nucleated Red Blood Cells % 0 %; Platelet Count 187 10^3/cmm (130-400); Red Blood Count 5.56 10^6/uL (4.1-5.3); Red Cell Distribution Width 13.2 % (12.1-15.1); White Blood Count 5.7 10^3/uL (4.0-10.0)
[2020-02-27 10:23] LABS: Lactate (Lactic Acid level) 1.4 mmol/L (0.5-2.2)
[2020-02-27 10:24] LABS: Alanine Aminotransferase 42 U/L (0-41); Albumin Level 4.2 g/dL (3.5-5.2); Alkaline Phosphatase 141 IU/L (40-130); Anion Gap 15.3 (5-19); Aspartate Amino Transferase 33 U/L (0-40); Blood Urea Nitrogen 17 mg/dL (8-23); Carbon Dioxide 23 mmol/L (22-29); Chloride 100 mmol/L (98-107); Globulin 3.1 g/dL (1.3-4.6); Glomerular Filtration Rate 83.9 mL/min (90-130); Glucose 134 mg/dL (65-115); Osmolality Calculated 276 mOsm/kg (285-295); Potassium 4.3 mmol/L (3.5-5.1); Sodium 134 mmol/L (136-145); Total Bilirubin 0.4 mg/dL (0.15-1.2); Total Protein 7.3 g/dL (6.6-8.7)
[2020-02-27] MEDS: sodium chloride 0.9% 500 ML 999 ML IV (10:30)
[2020-02-27 10:47] VITALS: BP 120/62; PULSE 100; RESP 16; TEMP 36.9; O2SAT 96; BMI 25.7
[2020-02-27 11:11] VITALS: BP 113/80; PULSE 97; RESP 18; O2SAT 95
[2020-02-27 11:27] LABS: Add Urine Microscopic? NO
[2020-02-27 11:33] LABS: Bilirubin Urine Neg (NEGATIVE); Blood Urine Neg (Negative); Glucose Urine UA Norm (Normal); Ketones Urine Negative (Negative); Leukocyte Esterase Urine Negative (Negative); Nitrate Urine Negative (Negative); Protein Urine Neg (Negative); Urine Appearance Clear (CLEAR); Urine Color Yellow (Yellow); Urobilinogen Urine 4 mg/dL (Negative); pH Urine 6 (5-7)
[2020-02-27 12:43] VITALS: BP 110/89; PULSE 97; RESP 16; TEMP 36.4; O2SAT 96
== END 2020-02-27 12:47 ==
PROVIDERS: Emergency Provider Nurse Practitioner Family; PCP Family Medicine
DX: G30.9 Alzheimer's disease, unspecified (principal); E86.0 Dehydration; S11.90XA Unspecified open wound of unspecified part of neck, initial encounter; X58.XXXA Exposure to other specified factors, initial encounter
CPT/HCPCS: 12345; 71045; 80053; 81003; 83605; 85025; 99283; J7040